=== PATIENT | male | born 1995 | race Caucasian/White ===

== ENCOUNTER 2022-08-22 16:47 | Emergency (ER) | payer OTHER ==
[~2022-08-22] VITALS: Ht 180.3 cm; Wt 86.6 kg
[2022-08-22] MEDS ORDERED: CETI10CA2 PO (17:02)
[2022-08-22 20:08] VITALS: BP 122/77
== END 2022-08-22 20:08 | disposition home or self-care (01) ==
LOC: M ED 16:47
DX: R22.42 Localized swelling, mass and lump, left lower limb (principal); M79.605 Pain in left leg; J45.909 Unspecified asthma, uncomplicated; Z79.899 Other long term (current) drug therapy